=== PATIENT | male | born 1985 | race American Indian/Alaskan Native ===

== ENCOUNTER 2021-05-23 18:52 | Emergency (ER) | payer MEDICAID, OTHER ==
[2021-05-23] MEDS ORDERED: Sodium Chloride 0.9% 1,000 ML IV ONE (19:09)
--- NOTE | 2021-05-23 19:12 | EDM.PDOCBH ---
ED HPI GENERAL MEDICAL PROBLEM - General Stated Complaint: AMBULANCE Time Seen by Provider: 05/23/21 19:12 Source of Information: Reports: Patient, EMS, RN, RN Notes Reviewed History Limitations: Reports: No Limitations - History of Present Illness INITIAL COMMENTS - FREE TEXT/NARRATIVE: Wong is a 36 y/o male who presents to the ED via [facility] for complaints of altered mental status. Per EMS report, upon their arrival to the scene, the patient was unresponsive with a pulse and appropriate respiration rate. Narcan IM was administered via [place] [facility] and sternal rub performed by EMS. Upon arrival to this facility the patient is alert and agitated. He is unable to state event surrounding EMS notification or his arrival to the ED. He denies recent illness, fever, shaking chills, palpitations, shortness of breath, abdominal pain, nausea, vomiting, or dysuria. He states he is unsure if he has used any recreational drugs in the past 24 hours; he notes drinking some alcohol today, but is unable to quantify the amount. Bilateral Chest Pain Score (Numeric/FACES): 10 - Related Data Allergies Allergy/AdvReac Type Severity Reaction Status Date / Time No Known Allergies Allergy Verified 05/23/21 19:27 Home Meds: Home Meds . [No Known Home Meds] 01/04/15 [History] Past Medical History - Past Health History Medical/Surgical History: Denies Medical/Surgical History HEENT History: Reports: None Cardiovascular History: Reports: None Respiratory History: Reports: None Gastrointestinal History: Reports: None, Pancreatitis Genitourinary History: Reports: None Musculoskeletal History: Reports: None Neurological History: Reports: None Psychiatric History: Reports: None Endocrine/Metabolic History: Reports: None Hematologic History: Reports: Other (See Below) Other Hematologic History: TTP Immunologic History: Reports: None Oncologic (Cancer) History: Reports: None Dermatologic History: Reports: None - Past Surgical History Head Surgeries/Procedures: Reports: None HEENT Surgical History: Reports: None Cardiovascular Surgical History: Reports: None Respiratory Surgical History: Reports: None GI Surgical History: Reports: None Male Surgical History: Reports: None Musculoskeletal Surgical History: Reports: None Social & Family History - Family History HEENT: Reports: None Cardiac: Reports: None Respiratory: Reports: None GI: Reports: None : Reports: None OBGYN: Reports: None Musculoskeletal: Reports: None Psychiatric: Reports: None Endocrine/Metabolic: Reports: None Hematologic: Reports: None Immunologic: Reports: None Dermatologic: Reports: None - Living Situation & Occupation Living situation: Reports: Single, with Family Occupation: Unemployed ED ROS GENERAL - Review of Systems Review Of Systems: Comprehensive ROS is negative, except as noted in HPI. ED EXAM, BEHAVIORAL HEALTH - Physical Exam Exam: See Below Exam Limited By: No Limitations General Appearance: No Apparent Distress, Lethargic Eye Exam: Bilateral Eye: EOMI, Normal Inspection, PERRL (3mm) Ears: Normal External Exam, Hearing Grossly Normal Nose: Normal Inspection Throat/Mouth: Normal Inspection, Normal Oropharynx, Normal Voice, No Airway Compromise Head: Atraumatic, Normocephalic Neck: Normal Inspection, Supple, Non-Tender, Full Range of Motion. No: Lymphadenopathy (L), Lymphadenopathy (R) Respiratory/Chest: No Respiratory Distress, Lungs Clear, Normal Breath Sounds, No Accessory Muscle Use, Chest Non-Tender. No: Crackles, Rales, Rhonchi, Wheezing, Stridor Cardiovascular: Normal Peripheral Pulses, Regular Rate, Rhythm, No Gallop, No Murmur, No Rub GI/Abdominal: Normal Bowel Sounds, Soft, Non-Tender, No Abnormal Bruit, No Mass, Pelvis Stable (Male) Exam: Deferred Rectal (Males) Exam: Deferred Back Exam: Normal Inspection, Full Range of Motion Extremities: Normal Inspection, Normal Range of Motion, Non-Tender, No Pedal Edema, Normal Capillary Refill Neurological: CN II-XII Intact, Normal Reflexes, No Motor/Sensory Deficits, Oriented x 3, Opens Eyes to Commands, Withdraws to Pain Psychiatric: Normal Mood, Flat Affect, Poor Eye Contact. No: Homicidal Thoughts, Suicidal Plan, Suicidal Thoughts, Paranoid Thoughts, Threatening Behavior Skin Exam: Warm, Dry, Intact, Normal color, No rash. No: Cyanosis, Jaundice, Mottled, Pallor #1 Interpretation EKG Date: 05/23/21 Time: 18:59 Rhythm: Other (Sinus Tach) Rate (Beats/Min): 109 [place]: Normal P-Wave: Present QRS: Normal ST-T: Normal QT: Normal Comparison: Change From Previous EKG (10/15/14) EKG Interpretation Comments: ST; No evidence of acute myocardial ischemia COURSE, BEHAVIORAL HEALTH COMP - Course Vital Signs: Last Vital Signs Temp 98.2 F 12/05/21 18:58 Pulse 113 H 05/23/21 18:58 Resp 30 H 05/23/21 18:58 BP 120/93 H 05/23/21 18:58 Pulse Ox 87 L 05/23/21 18:58 Orders, Labs, Meds: Laboratory Tests 05/23/21 05/23/21 05/23/21 Range/Units 19:01 19:01 19:20 WBC 20.2 H (5.0-10.0) 10^3/uL RBC 4.81 (4.6-6.2) 10^6/uL Hgb 14.9 (14.0-18.0) g/dL Hct 45.6 (40.0-54.0) % MCV 94.8 D (80-100) fL MCH 31.0 (27.0-34.0) pg MCHC 32.7 L (33.0-35.0) g/dL Plt Count 299 (150-450) 10^3/uL Neut % (Auto) 89.9 H (42.2-75.2) % Lymph % (Auto) 5.1 L (20.5-50.1) % [place] % (Auto) 4.7 (2-8) % Eos % (Auto) 0.2 L (1.0-3.0) % Baso % (Auto) 0.1 (0.0-1.0) % Add Manual Diff Yes Neutrophils % (Manual) 70 (42-75) % Band Neutrophils % 18 % Lymphocytes % (Manual) 9 L (20-50) % Atypical Lymphs % 0 % Monocytes % (Manual) 2 (2-8) % Eosinophils % (Manual) 0 L (1-3) % Basophils % (Manual) 1 Sodium (136-145) mmol/L Potassium (3.5-5.1) mmol/L Chloride (98-107) mmol/L Carbon Dioxide (21-32) mmol/L Anion Gap (7-13) mEq/L BUN (7-18) mg/dL Creatinine (0.70-1.30) mg/dL Est Cr Clr Drug Dosing Estimated GFR (MDRD) BUN/Creatinine Ratio (No establ ref range) Glucose (70-99) mg/dL Calcium (8.5-10.1) mg/dL Magnesium (1.8-2.4) mg/dL Total Bilirubin (0.2-1.0) mg/dL AST (15-37) U/L ALT (16-63) U/L Alkaline Phosphatase (46-116) U/L Troponin I High Sens (<=76) pg/mL C-Reactive Protein (0.0-0.9) mg/dL B-Natriuretic Peptide (0-100) pg/ml Total Protein (6.4-8.2) g/dL Albumin (3.4-5.0) g/dL Globulin Albumin/Globulin Ratio Urine Color Yellow (YELLOW) Urine Appearance Slightly cloudy (CLEAR) Urine pH 6.0 (5.0-9.0) Ur Specific [place] >= 1.030 (1.005-1.030) Urine Protein 30 H (NEGATIVE) Urine Glucose (UA) 250 H (NEGATIVE) Urine Ketones Negative (NEGATIVE) Urine Occult Blood Negative (NEGATIVE) Urine Nitrite Negative (NEGATIVE) Urine Bilirubin Negative (NEGATIVE) Urine Urobilinogen 0.2 (0.2-1.0) mg/dL Ur Leukocyte Esterase Negative (NEGATIVE) Urine RBC Not seen (0-5) /HPF Urine WBC Not seen (0-5/HPF) /HPF Ur Epithelial Cells Rare (NOT SEEN) /HPF Urine Bacteria Rare (0-FEW/HPF) /HPF Urine Opiates Screen Negative (NEGATIVE) Ur Oxycodone Screen Negative (NEGATIVE) Urine Methadone Screen Negative (NEGATIVE) Ur Barbiturates Screen Negative (NEGATIVE) U Tricyclic Antidepress Negative (NEGATIVE) Ur Phencyclidine Scrn Negative (NEGATIVE) Ur Amphetamine Screen Negative (NEGATIVE) U Methamphetamines Scrn Negative (NEGATIVE) Urine MDMA Screen Negative (NEGATIVE) U Benzodiazepines Scrn Negative (NEGATIVE) Urine Cocaine Screen Negative (NEGATIVE) U Marijuana (THC) Screen Positive H (NEGATIVE) Ethyl Alcohol (0) mg/dL 05/23/21 Range/Units 19:20 WBC (5.0-10.0) 10^3/uL RBC (4.6-6.2) 10^6/uL Hgb (14.0-18.0) g/dL Hct (40.0-54.0) % MCV (80-100) fL MCH (27.0-34.0) pg MCHC (33.0-35.0) g/dL Plt Count (150-450) 10^3/uL Neut % (Auto) (42.2-75.2) % Lymph % (Auto) (20.5-50.1) % [place] % (Auto) (2-8) % Eos % (Auto) (1.0-3.0) % Baso % (Auto) (0.0-1.0) % Add Manual Diff Neutrophils % (Manual) (42-75) % Band Neutrophils % % Lymphocytes % (Manual) (20-50) % Atypical Lymphs % % Monocytes % (Manual) (2-8) % Eosinophils % (Manual) (1-3) % Basophils % (Manual) Sodium 140 (136-145) mmol/L Potassium 4.9 (3.5-5.1) mmol/L Chloride 102 (98-107) mmol/L Carbon Dioxide 25 (21-32) mmol/L Anion Gap 17.9 H (7-13) mEq/L BUN 19 H (7-18) mg/dL Creatinine 1.79 H (0.70-1.30) mg/dL Est Cr Clr Drug Dosing TNP Estimated GFR (MDRD) 43 BUN/Creatinine Ratio 10.6 (No establ ref range) Glucose 259 H (70-99) mg/dL Calcium 8.4 L (8.5-10.1) mg/dL Magnesium 2.2 (1.8-2.4) mg/dL Total Bilirubin 0.3 (0.2-1.0) mg/dL AST 67 H (15-37) U/L ALT 122 H (16-63) U/L Alkaline Phosphatase 110 (46-116) U/L Troponin I High Sens 26 (<=76) pg/mL C-Reactive Protein < 0.2 (0.0-0.9) mg/dL B-Natriuretic Peptide 18 (0-100) pg/ml Total Protein 7.9 (6.4-8.2) g/dL Albumin 3.8 (3.4-5.0) g/dL Globulin 4.1 Albumin/Globulin Ratio 0.9 Urine Color (YELLOW) Urine Appearance (CLEAR) Urine pH (5.0-9.0) Ur Specific [place] (1.005-1.030) Urine Protein (NEGATIVE) Urine Glucose (UA) (NEGATIVE) Urine Ketones (NEGATIVE) Urine Occult Blood (NEGATIVE) Urine Nitrite (NEGATIVE) Urine Bilirubin (NEGATIVE) Urine Urobilinogen (0.2-1.0) mg/dL Ur Leukocyte Esterase (NEGATIVE) Urine RBC (0-5) /HPF Urine WBC (0-5/HPF) /HPF Ur Epithelial Cells (NOT SEEN) /HPF Urine Bacteria (0-FEW/HPF) /HPF Urine Opiates Screen (NEGATIVE) Ur Oxycodone Screen (NEGATIVE) Urine Methadone Screen (NEGATIVE) Ur Barbiturates Screen (NEGATIVE) U Tricyclic Antidepress (NEGATIVE) Ur Phencyclidine Scrn (NEGATIVE) Ur Amphetamine Screen (NEGATIVE) U Methamphetamines Scrn (NEGATIVE) Urine MDMA Screen (NEGATIVE) U Benzodiazepines Scrn (NEGATIVE) Urine Cocaine Screen (NEGATIVE) U Marijuana (THC) Screen (NEGATIVE) Ethyl Alcohol < 3 (0) mg/dL Medications Discontinued Medications Generic Name Dose Route Start Last Admin Trade Name Freq PRN Reason Stop Dose Admin Sodium Chloride 1,000 mls @ 999 mls/hr 05/23/21 19:09 05/23/21 19:37 Normal Saline IV 05/23/21 20:09 999 mls/hr .BOLUS ONE Administration Lactated Ringer's 1,000 mls @ 999 mls/hr 05/23/21 20:16 05/23/21 20:28 Ringers, Lactated IV 05/23/21 21:16 999 mls/hr .BOLUS ONE Administration Re-Assessment/Re-Exam: 05/23/21 NS 1L bolus administered while labs pending. Additional LR 1L bolus administered. Machine Filler discussed case with patient's mother who called EMS. She states she went to pick him up from a local hotel and found the patient kneeling next to the bed with his arms and torso slumped on the bed. He was not responding to her, so she called EMS. She does state the patient has a history of recreational drug abuse and cannot r/o current drug use as a cause for his AMS. Findings of examination, lab work, and imaging reviewed with patient. Supportive cares for discussed. Patient instructed to follow up with primary care provider regarding todays visit. Red flag signs and symptoms which would warrant immediate reevaluation reviewed. Patient verbalized understanding and agreement with the plan of care. Departure - Departure Time of Disposition: 21:13 Disposition: Home, Self-Care 01 Condition: Good Clinical Impression: Acute kidney injury, Elevated liver enzymes, Hyperglycemia Altered mental state Qualifiers: Altered mental status type: delirium Qualified Code(s): R41.0 - Disorientation, unspecified - Discharge Information *PRESCRIPTION DRUG MONITORING PROGRAM REVIEWED*: Not Applicable *COPY OF PRESCRIPTION DRUG MONITORING REPORT IN PATIENT OLIVIA: Not Applicable Instructions: Delirium Referrals: PCP,None [Primary Care Provider] - Forms: ED Department Discharge Additional Instructions: 1.) Increase water intake to stay hydrated. 2.) Avoid use of alcohol or recreational drugs. 3.) Establish care with a primary care provider in 3-5 days. 4.) Return to the emergency department with any return of symptoms. Sepsis Event Note (ED) - Focused Exam Vital Signs: Vital Signs Temp Pulse Resp BP Pulse Ox 05/23/21 18:58 98.2 F 113 H 30 H 120/93 H 87 L
[2021-05-23 19:27] VITALS: BP 120/93; PULSE 113
[2021-05-23 19:42] LABS: AMPHETAMINES,URINE NEGATIVE (NEGATIVE); BARBITURATES,URINE NEGATIVE (NEGATIVE); BENZODIAZEPINE,URINE NEGATIVE (NEGATIVE); MDMA (ECSTASY), URINE NEGATIVE (NEGATIVE); METHADONE,URINE NEGATIVE (NEGATIVE); METHAMPHETAMINES,URINE NEGATIVE (NEGATIVE); OPIATES,URINE NEGATIVE (NEGATIVE); OXYCODONE,URINE NEGATIVE (NEGATIVE); PHENCYCLIDINE,URINE NEGATIVE (NEGATIVE); TCA,URINE NEGATIVE (NEGATIVE)
[2021-05-23 19:50] LABS: ANION GAP 17.9 mEq/L (7-13); CHLORIDE,CL 102 mmol/L (98-107); SODIUM,NA 140 mmol/L (136-145)
[2021-05-23] MEDS ORDERED: Lactated Ringers 1,000 ML IV ONE (20:16)
== END 2021-05-23 21:32 | disposition home or self-care (01) ==
LOC: DL.ED 18:52
DX: R41.0 Disorientation, unspecified (principal); N17.9 Acute kidney failure, unspecified; R73.9 Hyperglycemia, unspecified; R94.5 Abnormal results of liver function studies
CPT/HCPCS: 36415; 80053; 80305; 80307; 81001; 83735; 83880; 84484; 85025; 86140; 93005; 99285; J7030; J7120

== ENCOUNTER 2021-08-05 09:08 | Emergency (ER) | payer OTHER ==
[2021-08-05 10:02] LABS: RESPIRATORY SYNCYTIAL VIR NAA NEGATIVE (NEGATIVE)
[2021-08-05 10:03] LABS: CORONAVIRUS COVID-19 NAA POSITIVE (NEGATIVE)
[2021-08-05 11:57] VITALS: BP 162/91; PULSE 69
== END 2021-08-05 12:48 | disposition home or self-care (01) ==
LOC: DL.ED 09:08
DX: U07.1 COVID-19 (principal); Z72.0 Tobacco use
CPT/HCPCS: 0241U; 99283; 99282

== ENCOUNTER 2021-10-13 23:28 | Emergency (ER) | payer SELFPAY ==
[2021-10-14] MEDS ORDERED: Ondansetron 4 MG/2 ML SDV IVPUSH ONE (00:10)
[2021-10-14] MEDS ORDERED: LORazepam 2 MG/ML SDV IVPUSH PRN (00:22)
[2021-10-14] MEDS: Sodium Chloride 0.9% 1,000 ML IV ONE ×2 (00:23→01:01)
[2021-10-14] MEDS ORDERED: Metoclopramide 10 MG/2 ML SDV IVPUSH PRN (00:45)
[2021-10-14] MEDS ORDERED: Famotidine 20 MG Tab PO ONE (00:45)
[2021-10-14] MEDS ORDERED: Famotidine 20 MG/2 ML SDV IVPUSH ONE (00:49)
[2021-10-14 00:51] LABS: ANION GAP 16.7 mEq/L (7-13); CHLORIDE,CL 103 mmol/L (98-107); SODIUM,NA 139 mmol/L (136-145)
[2021-10-14] MEDS ORDERED: Iopamidol 612 MG/ML 100 ML Bottle IVPUSH ONE (00:53)
[2021-10-14] MEDS ORDERED: Sodium Chloride 0.9% 1,000 ML IV ONE (00:56)
[2021-10-14] MEDS ORDERED: fentaNYL 100 MCG/2 ML SDV IVPUSH ONE (00:56)
[2021-10-14] MEDS ORDERED: LORazepam 1 MG Tab PO ONE (02:39)
[2021-10-14] MEDS ORDERED: LORazepam 2 MG/ML SDV IVPUSH ONE ×2 (02:43→06:37)
[2021-10-14 02:44] LABS: AMPHETAMINES,URINE NEGATIVE (NEGATIVE); BARBITURATES,URINE NEGATIVE (NEGATIVE); BENZODIAZEPINE,URINE NEGATIVE (NEGATIVE); MDMA (ECSTASY), URINE NEGATIVE (NEGATIVE); METHADONE,URINE NEGATIVE (NEGATIVE); METHAMPHETAMINES,URINE POSITIVE (NEGATIVE); OPIATES,URINE NEGATIVE (NEGATIVE); OXYCODONE,URINE NEGATIVE (NEGATIVE); PHENCYCLIDINE,URINE NEGATIVE (NEGATIVE); TCA,URINE NEGATIVE (NEGATIVE)
[2021-10-14] MEDS ORDERED: Pantoprazole 80 MG in Sodium Chloride 0.9% 100 ML IV ONE (03:13)
[2021-10-14] MEDS ORDERED: Promethazine 25 MG/ML SDV IM ONE (04:15)
[2021-10-14 05:05] LABS: CORONAVIRUS COVID-19 NAA NEGATIVE (NEGATIVE); RESPIRATORY SYNCYTIAL VIR NAA NEGATIVE (NEGATIVE)
[2021-10-14] MEDS ORDERED: Piperacillin/Tazobactam 3.375 GM in Sodium Chloride 0.9% 100 ML IV ONE (06:18)
[2021-10-14] MEDS ORDERED: Sodium Chloride 0.9% 100 ML ONE (06:27)
[2021-10-14] MEDS ORDERED: LORazepam 2 MG/ML SDV IM ONE (06:30)
[2021-10-14 08:04] VITALS: BP 128/77; PULSE 87
== END 2021-10-14 08:53 ==
LOC: DL.ED 23:28
DX: K26.4 Chronic or unspecified duodenal ulcer with hemorrhage (principal); R11.14 Bilious vomiting; R82.5 Elevated urine levels of drugs, medicaments and biological substances; Z72.0 Tobacco use; Z20.822 Contact with and (suspected) exposure to COVID-19
CPT/HCPCS: 0241U; 36415; 74177; 80053; 80305-QW; 80307; 82150; 83605; 83690; 84484; 85025; 87040; 93005; 96365; 96367; 96372; 96375; 96376; 99284; 99285-25; C9113; J2060; J2405; J2543; J2550; J2765; J3010; J3490; J7030; Q9967

== ENCOUNTER 2023-03-06 16:08 | Emergency (ER) | payer SELFPAY ==
[2023-03-06] MEDS ORDERED: Sodium Chloride 0.9% 10 ML Syringe FLUSH PRN (16:10)
[2023-03-06] MEDS ORDERED: Haloperidol Lactate 5 MG/ML SDV IVPUSH ONE (16:28)
[2023-03-06 16:38] LABS: BASOPHILS PERCENT AUTO 0.4 % (0.0-1.0); HEMATOCRIT 41.6 % (40.0-54.0); HEMOGLOBIN 14.4 g/dL (14.0-18.0); MEAN CORPUSCULAR HEMOGLOBIN 30.7 pg (27.0-34.0); MEAN CORPUSCULAR HGB CONC 34.6 g/dL (33.0-35.0); MEAN CORPUSCULAR VOLUME 88.7 fL (80-100); MONOCYTES PERCENT AUTO 4.5 % (2-8); NEUTROPHILS PERCENT AUTO 80.1 % (42.2-75.2); PLATELET COUNT,PLT 293 10^3/uL (150-450); RED BLOOD CELL COUNT 4.69 10^6/uL (4.6-6.2); WHITE BLOOD CELL COUNT,WBC 9.2 10^3/uL (5.0-10.0)
[2023-03-06] MEDS ORDERED: Pantoprazole 40 MG Vial IVPUSH ONE (16:40)
[2023-03-06] MEDS ORDERED: Sodium Chloride 0.9% 1,000 ML IV ONE (16:40)
[2023-03-06 16:48] LABS: APPEARANCE,URINE CLEAR (CLEAR); BILIRUBIN,URINE SMALL (NEGATIVE); COLOR,URINE YELLOW (YELLOW); GLUCOSE,URINE NEGATIVE (NEGATIVE); KETONES,URINE 40 (NEGATIVE); LEUKOCYTE ESTERASE,URINE TRACE (NEGATIVE); NITRITE,URINE NEGATIVE (NEGATIVE); OCCULT BLOOD,URINE TRACE-INTACT (NEGATIVE); PROTEIN,URINE 30 (NEGATIVE); UROBILINOGEN,URINE 0.2 mg/dL (0.2-1.0)
[2023-03-06 16:50] LABS: METHAMPHETAMINES,URINE NEGATIVE (NEGATIVE)
[2023-03-06 16:51] LABS: AMPHETAMINES,URINE NEGATIVE (NEGATIVE); BARBITURATES,URINE NEGATIVE (NEGATIVE); BENZODIAZEPINE,URINE NEGATIVE (NEGATIVE); MDMA (ECSTASY), URINE NEGATIVE (NEGATIVE); METHADONE,URINE NEGATIVE (NEGATIVE); OPIATES,URINE NEGATIVE (NEGATIVE); OXYCODONE,URINE NEGATIVE (NEGATIVE); PHENCYCLIDINE,URINE NEGATIVE (NEGATIVE); TCA,URINE NEGATIVE (NEGATIVE)
[2023-03-06 16:59] LABS: ALANINE AMINOTRANSFERASE,ALT 168 U/L (16-63); ALBUMIN 3.6 g/dL (3.4-5.0); ALKALINE PHOSPHATASE 119 U/L (46-116); AMYLASE 38 U/L (25-115); ANION GAP 17.4 mEq/L (7-13); ASPARTATE AMNIOTRANSFERASE,AST 107 U/L (15-37); BILIRUBIN TOTAL 0.5 mg/dL (0.2-1.0); BLOOD UREA NITROGEN,BUN 9 mg/dL (7-18); BUN/CREATININE RATIO 9.2 (No establ ref range); C-REACTIVE PROTEIN 0.08 ng/dL (<=0.30); CALCIUM 8.7 mg/dL (8.5-10.1); CARBON DIOXIDE,CO2 22 mmol/L (21-32); CHLORIDE,CL 106 mmol/L (98-107); CREATININE 0.98 mg/dL (0.70-1.30); EST CRCL DRUG DOSING (CG) 93.68 mL/min; ETHANOL BLOOD MEDICAL 46 mg/dL (0); GLUCOSE RANDOM 132 mg/dL (70-99); LIPASE 27 U/L (16-77); MAGNESIUM 1.6 mg/dL (1.8-2.4); POTASSIUM,K 3.4 mmol/L (3.5-5.1); PROTEIN TOTAL,TP 7.3 g/dL (6.4-8.2); SODIUM,NA 142 mmol/L (136-145)
[2023-03-06] MEDS ORDERED: HYDROmorphone 1 MG/ML Syringe IVPUSH ONE (17:03)
[2023-03-06 17:08] LABS: BACTERIA,URINE FEW /HPF (0-FEW/HPF); EPITHELIAL CELLS,URINE FEW /HPF (NOT SEEN); MUCUS,URINE MODERATE /LPF (NOT SEEN); RBC,URINE 0-5 /HPF (0-5)
[2023-03-06 17:16] LABS: ESTIMATED GFR 100 mL/min (>=60)
[2023-03-06 17:17] LABS: LACTIC ACID 2.5 mmol/L (0.4-2.0)
[2023-03-06] MEDS ORDERED: Iopamidol 612 MG/ML 100 ML Bottle IVPUSH ONE (17:20)
[2023-03-06 17:46] VITALS: BP 143/76; PULSE 71
== END 2023-03-06 18:29 | disposition home or self-care (01) ==
LOC: DL.ED 16:08
DX: K29.20 Alcoholic gastritis without bleeding (principal); R11.11 Vomiting without nausea; F12.90 Cannabis use, unspecified, uncomplicated; F17.210 Nicotine dependence, cigarettes, uncomplicated
CPT/HCPCS: 36415; 74177; 80053; 80305; 80307; 81001; 82150; 83605; 83690; 83735; 84145; 85025; 85610; 85730; 86140; 87040; 87086; 93005; 96361; 96374; 96375; 99285; C9113; J1170; J1630; J7030; Q9967; J3490

== ENCOUNTER 2023-07-01 14:46 | Observation (INO) | payer SELFPAY ==
[2023-07-01] MEDS ORDERED: Haloperidol Lactate 5 MG/ML SDV IM ONE (14:55)
[2023-07-01] MEDS ORDERED: Sodium Chloride 0.9% 1,000 ML IV ONE ×3 (14:55→16:25)
[2023-07-01 15:09] LABS: BASOPHILS PERCENT AUTO 0.2 % (0.0-1.0); LYMPHOCYTES PERCENT AUTO 10.8 % (20.5-50.1); MEAN CORPUSCULAR HEMOGLOBIN 30.6 pg (27.0-34.0); MEAN CORPUSCULAR HGB CONC 34.6 g/dL (33.0-35.0); MEAN CORPUSCULAR VOLUME 88.4 fL (80-100); MONOCYTES PERCENT AUTO 8.8 % (2-8); NEUTROPHILS PERCENT AUTO 80.2 % (42.2-75.2); PLATELET COUNT,PLT 359 10^3/uL (150-450); RED BLOOD CELL COUNT 5.88 10^6/uL (4.6-6.2); WHITE BLOOD CELL COUNT,WBC 18.6 10^3/uL (5.0-10.0)
[2023-07-01 15:28] LABS: ALBUMIN 4.7 g/dL (3.4-5.0); ANION GAP 22.3 mEq/L (7-13); CALCIUM 9.7 mg/dL (8.5-10.1); CREATININE 3.21 mg/dL (0.70-1.30); EST CRCL DRUG DOSING (CG) 29.6 mL/min; POTASSIUM,K 4.3 mmol/L (3.5-5.1); PROTEIN TOTAL,TP 9.3 g/dL (6.4-8.2)
[2023-07-01] MEDS ORDERED: Famotidine 20 MG/2 ML SDV IVPUSH ONE (15:52)
[2023-07-01 16:43] LABS: LACTIC ACID 4.9 mmol/L (0.4-2.0)
[2023-07-01] MEDS ORDERED: Naloxone 2 MG/2 ML Syringe IVPUSH PRN (17:25)
[2023-07-01] MEDS ORDERED: HYDROmorphone 0.5 MG/0.5 ML Syringe IVPUSH ONE (17:25)
[2023-07-01] MEDS ORDERED: Pantoprazole 40 MG Vial IVPUSH ONE (17:25)
[2023-07-01] MEDS ORDERED: MVI, Adult with Vitamin K 10 ML, Folic Acid 1 MG, Thiamine 100 MG in Lactated Ringers 1... IV ONE ×4 (19:02)
[2023-07-01] MEDS ORDERED: Sodium Chloride 0.9% 10 ML Syringe FLUSH PRN (19:23)
[2023-07-01] MEDS ORDERED: Acetaminophen 325 MG Tab PO PRN (19:23)
[2023-07-01] MEDS ORDERED: Albuterol/Ipratropium 3.0-0.5 MG/3 ML Neb Soln NEB PRN (19:23)
[2023-07-01] MEDS ORDERED: Haloperidol Lactate 5 MG/ML SDV IM PRN (19:27)
[2023-07-01] MEDS: Capsaicin 0.025% Crm 60 GM Tube TOP SCH (21:37)
[2023-07-01] MEDS: Sodium Chloride 0.9% 10 ML Syringe FLUSH SCH (21:37)
[2023-07-01] MEDS: Pantoprazole 40 MG Vial IVPUSH SCH (21:37)
[2023-07-02] MEDS: HYDROmorphone 0.5 MG/0.5 ML Syringe IVPUSH PRN ×4 (01:34→20:06)
[2023-07-02 06:33] LABS: BASOPHILS PERCENT AUTO 0.4 % (0.0-1.0); HEMATOCRIT 41.3 % (40.0-54.0); HEMOGLOBIN 14.1 g/dL (14.0-18.0); MEAN CORPUSCULAR HEMOGLOBIN 30.8 pg (27.0-34.0); MEAN CORPUSCULAR HGB CONC 34.1 g/dL (33.0-35.0); MEAN CORPUSCULAR VOLUME 90.2 fL (80-100); MONOCYTES PERCENT AUTO 13.5 % (2-8); NEUTROPHILS PERCENT AUTO 68.1 % (42.2-75.2); PLATELET COUNT,PLT 252 10^3/uL (150-450); RED BLOOD CELL COUNT 4.58 10^6/uL (4.6-6.2)
[2023-07-02 06:37] LABS: APPEARANCE,URINE CLEAR (CLEAR); BILIRUBIN,URINE NEGATIVE (NEGATIVE); COLOR,URINE YELLOW (YELLOW); GLUCOSE,URINE NEGATIVE (NEGATIVE); KETONES,URINE NEGATIVE (NEGATIVE); LEUKOCYTE ESTERASE,URINE NEGATIVE (NEGATIVE); NITRITE,URINE NEGATIVE (NEGATIVE); OCCULT BLOOD,URINE TRACE-INTACT (NEGATIVE); PH,URINE 6.5 (5.0-9.0); PROTEIN,URINE NEGATIVE (NEGATIVE); UROBILINOGEN,URINE 0.2 mg/dL (0.2-1.0)
[2023-07-02 06:41] LABS: AMPHETAMINES,URINE NEGATIVE (NEGATIVE); BARBITURATES,URINE NEGATIVE (NEGATIVE); BENZODIAZEPINE,URINE NEGATIVE (NEGATIVE); MDMA (ECSTASY), URINE NEGATIVE (NEGATIVE); METHADONE,URINE NEGATIVE (NEGATIVE); METHAMPHETAMINES,URINE NEGATIVE (NEGATIVE); OPIATES,URINE POSITIVE (NEGATIVE); OXYCODONE,URINE NEGATIVE (NEGATIVE); PHENCYCLIDINE,URINE NEGATIVE (NEGATIVE); TCA,URINE NEGATIVE (NEGATIVE)
[2023-07-02 06:54] LABS: BACTERIA,URINE FEW /HPF (0-FEW/HPF); EPITHELIAL CELLS,URINE RARE /HPF (NOT SEEN); MUCUS,URINE RARE /LPF (NOT SEEN); RBC,URINE 0-5 /HPF (0-5); WBC,URINE 0-5 /HPF (0-5/HPF)
[2023-07-02 07:10] LABS: ANION GAP 14.7 mEq/L (7-13); BUN/CREATININE RATIO 10.6 (No establ ref range); CREATININE 1.32 mg/dL (0.70-1.30); EST CRCL DRUG DOSING (CG) 71.97 mL/min; MAGNESIUM 1.5 mg/dL (1.8-2.4); POTASSIUM,K 3.7 mmol/L (3.5-5.1); PROTEIN TOTAL,TP 6.5 g/dL (6.4-8.2)
[2023-07-02 07:11] LABS: A/G RATIO 0.86
[2023-07-02] MEDS: Capsaicin 0.025% Crm 60 GM Tube TOP SCH ×4 (09:00→19:59)
[2023-07-02] MEDS: Pantoprazole 40 MG Vial IVPUSH SCH ×2 (09:03→20:11)
[2023-07-02] MEDS: Sodium Chloride 0.9% 10 ML Syringe FLUSH SCH ×2 (09:13→20:16)
[2023-07-02] MEDS ORDERED: Magnesium Sulfate/Water 2 GM in Premix Bag 1 BAG IV ONE ×2 (09:28→15:00)
[2023-07-02] MEDS: Sucralfate Suspension 1 GM/10 ML Cup PO SCH ×3 (13:06→20:17)
[2023-07-02] MEDS: Ketorolac 30 MG/ML SDV IVPUSH PRN ×2 (15:45→23:28)
[2023-07-03] MEDS: Capsaicin 0.025% Crm 60 GM Tube TOP SCH ×2 (01:30→08:43)
[2023-07-03] MEDS: HYDROmorphone 0.5 MG/0.5 ML Syringe IVPUSH PRN (03:04)
[2023-07-03 06:23] LABS: BASOPHILS PERCENT AUTO 0.5 % (0.0-1.0); EOSINOPHILS PERCENT AUTO 1.5 % (1.0-3.0); HEMATOCRIT 41.9 % (40.0-54.0); HEMOGLOBIN 14.2 g/dL (14.0-18.0); LYMPHOCYTES PERCENT AUTO 25.1 % (20.5-50.1); MEAN CORPUSCULAR HEMOGLOBIN 30.9 pg (27.0-34.0); MEAN CORPUSCULAR HGB CONC 33.9 g/dL (33.0-35.0); MEAN CORPUSCULAR VOLUME 91.3 fL (80-100); MONOCYTES PERCENT AUTO 11.6 % (2-8); NEUTROPHILS PERCENT AUTO 61.3 % (42.2-75.2); PLATELET COUNT,PLT 241 10^3/uL (150-450); RED BLOOD CELL COUNT 4.59 10^6/uL (4.6-6.2); WHITE BLOOD CELL COUNT,WBC 8.3 10^3/uL (5.0-10.0)
[2023-07-03 06:49] LABS: ALBUMIN 2.9 g/dL (3.4-5.0); ANION GAP 11.8 mEq/L (7-13); BILIRUBIN TOTAL 1.1 mg/dL (0.2-1.0); BUN/CREATININE RATIO 14.6 (No establ ref range); CREATININE 1.03 mg/dL (0.70-1.30); EST CRCL DRUG DOSING (CG) 92.23 mL/min; POTASSIUM,K 3.8 mmol/L (3.5-5.1); PROTEIN TOTAL,TP 6.3 g/dL (6.4-8.2)
[2023-07-03 06:53] LABS: A/G RATIO 0.85
[2023-07-03] MEDS: Sucralfate Suspension 1 GM/10 ML Cup PO SCH (07:46)
[2023-07-03] MEDS: Ketorolac 30 MG/ML SDV IVPUSH PRN (07:51)
[2023-07-03 08:29] VITALS: BP 110/62; PULSE 56
[2023-07-03] MEDS: Pantoprazole 40 MG Vial IVPUSH SCH (08:38)
== END 2023-07-03 10:55 | disposition home or self-care (01) ==
LOC: DL.ED 14:46 → DL.MS 17:49
PROVIDERS: ADMIT Internal Medicine; ATTEND Internal Medicine
DX: F12.288 Cannabis dependence with other cannabis-induced disorder (principal); F17.200 Nicotine dependence, unspecified, uncomplicated; R10.9 Unspecified abdominal pain; R11.2 Nausea with vomiting, unspecified; R73.9 Hyperglycemia, unspecified; K29.00 Acute gastritis without bleeding; Z79.899 Other long term (current) drug therapy; Z79.51 Long term (current) use of inhaled steroids
CPT/HCPCS: 36415; 71045; 74176; 80053; 80305-QW; 80307; 81001; 82271; 83605; 83690; 83735; 85025; 96361; 96365; 96366; 96368; 96372; 96374; 96375; 96376; 99222; 99232; 99238; 99285; 99285-25; A9270-GY; C9113; G0378; J1170; J1630; J1885; J3411; J3475; J3490; J7030; J7120

== ENCOUNTER 2023-07-10 14:48 | Emergency (ER) | payer MEDICAID ==
[2023-07-10 14:09] VITALS: BP 166/154; PULSE 78
[2023-07-10 14:22] LABS: BASOPHILS PERCENT AUTO 0.2 % (0.0-1.0); EOSINOPHILS PERCENT AUTO 0.6 % (1.0-3.0); HEMATOCRIT 45.8 % (40.0-54.0); HEMOGLOBIN 15.5 g/dL (14.0-18.0); LYMPHOCYTES PERCENT AUTO 17.8 % (20.5-50.1); MEAN CORPUSCULAR HEMOGLOBIN 30.3 pg (27.0-34.0); MEAN CORPUSCULAR HGB CONC 33.8 g/dL (33.0-35.0); MEAN CORPUSCULAR VOLUME 89.6 fL (80-100); MONOCYTES PERCENT AUTO 9.1 % (2-8); NEUTROPHILS PERCENT AUTO 72.3 % (42.2-75.2); PLATELET COUNT,PLT 320 10^3/uL (150-450); RED BLOOD CELL COUNT 5.11 10^6/uL (4.6-6.2); WHITE BLOOD CELL COUNT,WBC 9.5 10^3/uL (5.0-10.0)
[2023-07-10 14:39] LABS: INR 0.9 (0.9-1.2); PROTHROMBIN TIME 9.6 SEC (9.0-12.0); PTT,PARTIAL THROMBOPLSTIN TIME 21.9 SEC (22.0-34.0)
[2023-07-10 14:46] LABS: LACTIC ACID 1.4 mmol/L (0.4-2.0)
[~2023-07-10 14:48] MED LIST: Haloperidol Lactate 5 MG/ML SDV IVPUSH ONE; Octreotide 100 MCG in Sodium Chloride 0.9% 99 ML IV SCH; Octreotide 100 MCG/ML SDV IVPUSH ONE; Pantoprazole 40 MG Vial IVPUSH ONE; Pantoprazole 40 MG in Sodium Chloride 0.9% 100 ML IV SCH; Sodium Chloride 0.9% 10 ML Syringe FLUSH PRN
[2023-07-10 14:53] LABS: ACETAMINOPHEN 0 ug/mL (10-30 (Therapeutic)); ALANINE AMINOTRANSFERASE,ALT 63 U/L (16-63); ALBUMIN 3.6 g/dL (3.4-5.0); ALKALINE PHOSPHATASE 106 U/L (46-116); AMYLASE 38 U/L (25-115); ANION GAP 17.3 mEq/L (7-13); ASPARTATE AMNIOTRANSFERASE,AST 36 U/L (15-37); BILIRUBIN TOTAL 0.5 mg/dL (0.2-1.0); BLOOD UREA NITROGEN,BUN 11 mg/dL (7-18); BUN/CREATININE RATIO 9.2 (No establ ref range); C-REACTIVE PROTEIN < 0.50 ng/dL (<=0.50); CALCIUM 8.8 mg/dL (8.5-10.1); CARBON DIOXIDE,CO2 24 mmol/L (21-32); CHLORIDE,CL 106 mmol/L (98-107); EST CRCL DRUG DOSING (CG) 81.83 mL/min; ESTIMATED GFR 78 mL/min (>=60); ETHANOL BLOOD MEDICAL < 3 mg/dL (0); GLUCOSE RANDOM 139 mg/dL (70-99); LIPASE 30 U/L (16-77); MAGNESIUM 1.7 mg/dL (1.8-2.4); POTASSIUM,K 3.3 mmol/L (3.5-5.1); PROTEIN TOTAL,TP 7.2 g/dL (6.4-8.2); SODIUM,NA 144 mmol/L (136-145)
== END 2023-07-10 14:51 | disposition left against medical advice (07) ==
LOC: DL.ED 14:48
DX: R11.10 Vomiting, unspecified (principal); F12.90 Cannabis use, unspecified, uncomplicated; Z79.899 Other long term (current) drug therapy
CPT/HCPCS: 36415; 71045; 80053; 80143; 80179; 80307; 82150; 82271; 83605; 83690; 83735; 84145; 84484; 85025; 85610; 85730; 86140; 86850; 86900; 86901; 93005; 93010; 96374; 96375; 99284; 99285-25; C9113; J1630; J3490

== ENCOUNTER 2023-07-12 11:41 | Emergency (ER) | payer MEDICAID ==
[2023-07-12] MEDS ORDERED: Ondansetron 4 MG Tab.DIS PO ONE (11:50)
[2023-07-12 11:58] VITALS: BP 131/81; PULSE 83
[2023-07-12 12:06] LABS: BASOPHILS PERCENT AUTO 0.3 % (0.0-1.0); HEMATOCRIT 41.3 % (40.0-54.0); HEMOGLOBIN 14.1 g/dL (14.0-18.0); LYMPHOCYTES PERCENT AUTO 24.2 % (20.5-50.1); MEAN CORPUSCULAR HEMOGLOBIN 30.9 pg (27.0-34.0); MEAN CORPUSCULAR HGB CONC 34.1 g/dL (33.0-35.0); MEAN CORPUSCULAR VOLUME 90.6 fL (80-100); MONOCYTES PERCENT AUTO 8.5 % (2-8); PLATELET COUNT,PLT 314 10^3/uL (150-450); RED BLOOD CELL COUNT 4.56 10^6/uL (4.6-6.2); WHITE BLOOD CELL COUNT,WBC 7.1 10^3/uL (5.0-10.0)
[2023-07-12 12:28] LABS: ALANINE AMINOTRANSFERASE,ALT 49 U/L (16-63); ALBUMIN 3.4 g/dL (3.4-5.0); ALKALINE PHOSPHATASE 98 U/L (46-116); AMYLASE 39 U/L (25-115); ANION GAP 15.5 mEq/L (7-13); ASPARTATE AMNIOTRANSFERASE,AST 20 U/L (15-37); BILIRUBIN TOTAL 0.4 mg/dL (0.2-1.0); BLOOD UREA NITROGEN,BUN 10 mg/dL (7-18); BUN/CREATININE RATIO 9.4 (No establ ref range); CALCIUM 8.8 mg/dL (8.5-10.1); CARBON DIOXIDE,CO2 25 mmol/L (21-32); CHLORIDE,CL 104 mmol/L (98-107); CREATININE 1.06 mg/dL (0.70-1.30); EST CRCL DRUG DOSING (CG) 92.64 mL/min; GLUCOSE RANDOM 119 mg/dL (70-99); INR 0.9 (0.9-1.2); LIPASE 31 U/L (16-77); MAGNESIUM 1.7 mg/dL (1.8-2.4); POTASSIUM,K 3.5 mmol/L (3.5-5.1); PROTEIN TOTAL,TP 6.8 g/dL (6.4-8.2); PROTHROMBIN TIME 9.4 SEC (9.0-12.0); PTT,PARTIAL THROMBOPLSTIN TIME 23.3 SEC (22.0-34.0); SODIUM,NA 141 mmol/L (136-145)
[2023-07-12 12:32] LABS: AMPHETAMINES,URINE NEGATIVE (NEGATIVE); BARBITURATES,URINE NEGATIVE (NEGATIVE); BENZODIAZEPINE,URINE NEGATIVE (NEGATIVE); MDMA (ECSTASY), URINE NEGATIVE (NEGATIVE); METHADONE,URINE NEGATIVE (NEGATIVE); METHAMPHETAMINES,URINE NEGATIVE (NEGATIVE); OPIATES,URINE NEGATIVE (NEGATIVE); OXYCODONE,URINE NEGATIVE (NEGATIVE); PHENCYCLIDINE,URINE NEGATIVE (NEGATIVE); TCA,URINE NEGATIVE (NEGATIVE)
[2023-07-12 12:32] LABS: ESTIMATED GFR 91 mL/min (>=60); ETHANOL BLOOD MEDICAL < 3 mg/dL (0)
[2023-07-12 12:33] LABS: LACTIC ACID 1.1 mmol/L (0.4-2.0)
[2023-07-12] MEDS ORDERED: Haloperidol Lactate 5 MG/ML SDV IM ONE (12:41)
[2023-07-12] MEDS ORDERED: Sucralfate Suspension 1 GM/10 ML Cup PO ONE (13:06)
[2023-07-12] MEDS ORDERED: Metoclopramide 10 MG/2 ML SDV IM ONE (13:10)
[2023-07-12] MEDS ORDERED: GI Cocktail Oral Solution 30 ML PO ONE (13:13)
== END 2023-07-12 13:45 | disposition home or self-care (01) ==
LOC: DL.ED 11:41
DX: K29.20 Alcoholic gastritis without bleeding (principal)
CPT/HCPCS: 36415; 80053; 80305-QW; 80307; 82150; 83605; 83690; 83735; 85025; 85610; 85730; 96372; 99283; 99284; A9270-GY; J1630; J2765

== ENCOUNTER 2023-10-27 09:53 | Emergency (ER) | payer MEDICAID ==
[2023-10-27] MEDS: diphenhydrAMINE 50 MG/ML SDV IVPUSH ONE (10:12)
[2023-10-27] MEDS: Haloperidol Lactate 5 MG/ML SDV IVPUSH ONE (10:12)
[2023-10-27] MEDS: Sodium Chloride 0.9% 1,000 ML IV ONE (10:13)
[2023-10-27] MEDS: Sodium Chloride 0.9% 10 ML Syringe FLUSH PRN (10:13)
[2023-10-27 10:15] VITALS: BP 134/97; PULSE 81
[2023-10-27 10:15] LABS: BASOPHILS PERCENT AUTO 0.3 % (0.0-1.0); EOSINOPHILS PERCENT AUTO 0.6 % (1.0-3.0); HEMATOCRIT 48.6 % (40.0-54.0); HEMOGLOBIN 16.8 g/dL (14.0-18.0); LYMPHOCYTES PERCENT AUTO 19.4 % (20.5-50.1); MEAN CORPUSCULAR HEMOGLOBIN 30.6 pg (27.0-34.0); MEAN CORPUSCULAR HGB CONC 34.6 g/dL (33.0-35.0); MEAN CORPUSCULAR VOLUME 88.5 fL (80-100); MONOCYTES PERCENT AUTO 7.8 % (2-8); NEUTROPHILS PERCENT AUTO 71.9 % (42.2-75.2); PLATELET COUNT,PLT 351 10^3/uL (150-450); RED BLOOD CELL COUNT 5.49 10^6/uL (4.6-6.2); WHITE BLOOD CELL COUNT,WBC 6.7 10^3/uL (5.0-10.0)
[2023-10-27] MEDS: LORazepam 2 MG/ML SDV IVPUSH ONE (10:23)
[2023-10-27 10:36] LABS: ALANINE AMINOTRANSFERASE,ALT 110 U/L (16-63); ALBUMIN 4.1 g/dL (3.4-5.0); ALKALINE PHOSPHATASE 150 U/L (46-116); ANION GAP 21.4 mEq/L (7-13); ASPARTATE AMNIOTRANSFERASE,AST 59 U/L (15-37); BILIRUBIN TOTAL 0.4 mg/dL (0.2-1.0); BLOOD UREA NITROGEN,BUN 10 mg/dL (7-18); BUN/CREATININE RATIO 7.5 (No establ ref range); CALCIUM 9.1 mg/dL (8.5-10.1); CARBON DIOXIDE,CO2 22 mmol/L (21-32); CHLORIDE,CL 103 mmol/L (98-107); CREATININE 1.33 mg/dL (0.70-1.30); GLUCOSE RANDOM 145 mg/dL (70-99); LIPASE 25 U/L (16-77); POTASSIUM,K 3.4 mmol/L (3.5-5.1); PROTEIN TOTAL,TP 8.4 g/dL (6.4-8.2); SODIUM,NA 143 mmol/L (136-145)
[2023-10-27 11:01] LABS: APPEARANCE,URINE CLEAR (CLEAR); BILIRUBIN,URINE SMALL (NEGATIVE); COLOR,URINE DARK YELLOW (YELLOW); GLUCOSE,URINE NEGATIVE (NEGATIVE); KETONES,URINE TRACE (NEGATIVE); LEUKOCYTE ESTERASE,URINE NEGATIVE (NEGATIVE); NITRITE,URINE NEGATIVE (NEGATIVE); OCCULT BLOOD,URINE NEGATIVE (NEGATIVE); PROTEIN,URINE 100 (NEGATIVE); UROBILINOGEN,URINE 0.2 mg/dL (0.2-1.0)
[2023-10-27 11:01] LABS: ESTIMATED GFR 69 mL/min (>=60)
[2023-10-27 11:03] LABS: LACTIC ACID 2.7 mmol/L (0.4-2.0)
[2023-10-27 11:06] LABS: AMPHETAMINES,URINE NEGATIVE (NEGATIVE); BARBITURATES,URINE NEGATIVE (NEGATIVE); BENZODIAZEPINE,URINE NEGATIVE (NEGATIVE); MDMA (ECSTASY), URINE NEGATIVE (NEGATIVE); METHADONE,URINE NEGATIVE (NEGATIVE); METHAMPHETAMINES,URINE NEGATIVE (NEGATIVE); OPIATES,URINE NEGATIVE (NEGATIVE); OXYCODONE,URINE NEGATIVE (NEGATIVE); PHENCYCLIDINE,URINE NEGATIVE (NEGATIVE); TCA,URINE NEGATIVE (NEGATIVE)
[2023-10-27 11:51] LABS: MUCUS,URINE MANY /LPF (NOT SEEN)
[2023-10-27 11:52] LABS: AMORPHOUS SEDIMENT,URINE FEW /HPF (NOT SEEN); BACTERIA,URINE FEW /HPF (0-FEW/HPF); EPITHELIAL CELLS,URINE RARE /HPF (NOT SEEN); RBC,URINE NOT SEEN /HPF (0-5)
== END 2023-10-27 13:30 | disposition home or self-care (01) ==
LOC: DL.ED 09:53
DX: R10.13 Epigastric pain (principal); R11.2 Nausea with vomiting, unspecified; F12.188 Cannabis abuse with other cannabis-induced disorder; Z79.899 Other long term (current) drug therapy
CPT/HCPCS: 36415; 80053; 80305; 81001; 83605; 83690; 85025; 96361; 96374; 96375; 99284; J1200; J1630; J2060; J7030; J3490

== ENCOUNTER 2023-11-03 12:37 | Emergency (ER) | payer MEDICAID ==
[2023-11-03 10:50] VITALS: BP 153/92; PULSE 70
[2023-11-03 10:56] LABS: BASOPHILS PERCENT AUTO 0.4 % (0.0-1.0); EOSINOPHILS PERCENT AUTO 3.6 % (1.0-3.0); HEMATOCRIT 45.2 % (40.0-54.0); HEMOGLOBIN 15.4 g/dL (14.0-18.0); LYMPHOCYTES PERCENT AUTO 19.7 % (20.5-50.1); MEAN CORPUSCULAR HEMOGLOBIN 30.7 pg (27.0-34.0); MEAN CORPUSCULAR HGB CONC 34.1 g/dL (33.0-35.0); MEAN CORPUSCULAR VOLUME 90.2 fL (80-100); MONOCYTES PERCENT AUTO 6.9 % (2-8); NEUTROPHILS PERCENT AUTO 69.4 % (42.2-75.2); PLATELET COUNT,PLT 279 10^3/uL (150-450); RED BLOOD CELL COUNT 5.01 10^6/uL (4.6-6.2); WHITE BLOOD CELL COUNT,WBC 10.4 10^3/uL (5.0-10.0)
[2023-11-03] MEDS: diphenhydrAMINE 50 MG/ML SDV IVPUSH ONE (11:02)
[2023-11-03] MEDS: Sodium Chloride 0.9% 1,000 ML IV ONE (11:02)
[2023-11-03] MEDS: Haloperidol Lactate 5 MG/ML SDV IVPUSH ONE ×2 (11:02→11:37)
[2023-11-03] MEDS: Pantoprazole 40 MG Vial IVPUSH ONE (11:02)
[2023-11-03 11:14] LABS: ALBUMIN 3.8 g/dL (3.4-5.0); ANION GAP 15.9 mEq/L (7-13); BILIRUBIN TOTAL 0.6 mg/dL (0.2-1.0); BUN/CREATININE RATIO 10.7 (No establ ref range); CALCIUM 8.8 mg/dL (8.5-10.1); CREATININE 1.21 mg/dL (0.70-1.30); EST CRCL DRUG DOSING (CG) 83.79 mL/min; POTASSIUM,K 3.9 mmol/L (3.5-5.1); PROTEIN TOTAL,TP 7.7 g/dL (6.4-8.2)
[2023-11-03] MEDS: GI Cocktail Oral Solution 30 ML PO ONE (11:22)
[2023-11-03] MEDS: Haloperidol Lactate 5 MG/ML SDV ONE (11:37)
[2023-11-03] MEDS: Iopamidol 612 MG/ML 100 ML Bottle IVPUSH ONE (11:46)
== END 2023-11-03 12:45 | disposition home or self-care (01) ==
LOC: DL.ED 12:37
DX: R11.2 Nausea with vomiting, unspecified (principal); F12.10 Cannabis abuse, uncomplicated; Z79.899 Other long term (current) drug therapy
CPT/HCPCS: 36415; 74177; 80053; 82150; 83690; 85025; 96361; 96374; 96375; 96376; 99284; A9270; C9113; J1200; J1630; J7030; Q9967

== ENCOUNTER 2024-03-13 10:24 | Emergency (ER) | payer MEDICAID ==
[2024-03-13] MEDS ORDERED: Sodium Chloride 0.9% 10 ML Syringe FLUSH PRN (10:29)
[2024-03-13 10:45] VITALS: BP 123/73; PULSE 60
[2024-03-13 10:46] LABS: BASOPHILS PERCENT AUTO 0.1 % (0.0-1.0); EOSINOPHILS PERCENT AUTO 4.7 % (1.0-3.0); HEMATOCRIT 41.8 % (40.0-54.0); HEMOGLOBIN 14.2 g/dL (14.0-18.0); LYMPHOCYTES PERCENT AUTO 9.8 % (20.5-50.1); MEAN CORPUSCULAR HEMOGLOBIN 31.1 pg (27.0-34.0); MEAN CORPUSCULAR VOLUME 91.5 fL (80-100); MONOCYTES PERCENT AUTO 7.7 % (2-8); NEUTROPHILS PERCENT AUTO 77.7 % (42.2-75.2); PLATELET COUNT,PLT 294 10^3/uL (150-450); RED BLOOD CELL COUNT 4.57 10^6/uL (4.6-6.2); WHITE BLOOD CELL COUNT,WBC 9.7 10^3/uL (5.0-10.0)
[2024-03-13] MEDS: Ketorolac 30 MG/ML SDV IVPUSH ONE (10:55)
[2024-03-13] MEDS: GI Cocktail Oral Solution 30 ML PO ONE (10:56)
[2024-03-13 11:05] LABS: ALANINE AMINOTRANSFERASE,ALT 72 U/L (16-63); ALBUMIN 3.6 g/dL (3.4-5.0); ALKALINE PHOSPHATASE 138 U/L (46-116); ANION GAP 10.5 mEq/L (7-13); ASPARTATE AMNIOTRANSFERASE,AST 43 U/L (15-37); BILIRUBIN TOTAL 0.5 mg/dL (0.2-1.0); BLOOD UREA NITROGEN,BUN 16 mg/dL (7-18); BUN/CREATININE RATIO 15.8 (No establ ref range); CALCIUM 9.1 mg/dL (8.5-10.1); CARBON DIOXIDE,CO2 26 mmol/L (21-32); CHLORIDE,CL 106 mmol/L (98-107); CREATININE 1.01 mg/dL (0.70-1.30); EST CRCL DRUG DOSING (CG) 96.25 mL/min; GLUCOSE RANDOM 142 mg/dL (70-99); MAGNESIUM 1.9 mg/dL (1.8-2.4); POTASSIUM,K 3.5 mmol/L (3.5-5.1); PROTEIN TOTAL,TP 7.1 g/dL (6.4-8.2); SODIUM,NA 139 mmol/L (136-145)
[2024-03-13 11:06] LABS: C-REACTIVE PROTEIN < 0.50 ng/dL (<=0.50); ESTIMATED GFR 96 mL/min (>=60)
[2024-03-13 11:14] LABS: AMYLASE 31 U/L (25-115); LIPASE 23 U/L (16-77)
[2024-03-13 11:15] LABS: APPEARANCE,URINE CLEAR (CLEAR); BILIRUBIN,URINE SMALL (NEGATIVE); COLOR,URINE DARK YELLOW (YELLOW); GLUCOSE,URINE NEGATIVE (NEGATIVE); KETONES,URINE TRACE (NEGATIVE); LEUKOCYTE ESTERASE,URINE NEGATIVE (NEGATIVE); NITRITE,URINE NEGATIVE (NEGATIVE); OCCULT BLOOD,URINE NEGATIVE (NEGATIVE); PH,URINE 6.5 (5.0-9.0); PROTEIN,URINE 30 (NEGATIVE); UROBILINOGEN,URINE 0.2 mg/dL (0.2-1.0)
[2024-03-13 11:22] LABS: AMPHETAMINES,URINE NEGATIVE (NEGATIVE); BARBITURATES,URINE NEGATIVE (NEGATIVE); BENZODIAZEPINE,URINE NEGATIVE (NEGATIVE); MDMA (ECSTASY), URINE POSITIVE (NEGATIVE); METHADONE,URINE NEGATIVE (NEGATIVE); METHAMPHETAMINES,URINE NEGATIVE (NEGATIVE); OPIATES,URINE NEGATIVE (NEGATIVE); OXYCODONE,URINE NEGATIVE (NEGATIVE); PHENCYCLIDINE,URINE NEGATIVE (NEGATIVE); TCA,URINE NEGATIVE (NEGATIVE)
[2024-03-13 11:28] LABS: AMORPHOUS SEDIMENT,URINE FEW /HPF (NOT SEEN); BACTERIA,URINE FEW /HPF (0-FEW/HPF); EPITHELIAL CELLS,URINE RARE /HPF (NOT SEEN); MUCUS,URINE MODERATE /LPF (NOT SEEN); RBC,URINE 0-5 /HPF (0-5); WBC,URINE 0-5 /HPF (0-5/HPF)
== END 2024-03-13 11:25 | disposition home or self-care (01) ==
LOC: DL.ED 10:24
DX: R10.13 Epigastric pain (principal)
CPT/HCPCS: 36415; 80053; 80305-QW; 81001; 82150; 83605; 83690; 83735; 85025; 86140; 96374; 99284-25; A9270-GY; J1885

== ENCOUNTER 2024-04-17 16:57 | Emergency (ER) | payer MEDICAID ==
[2024-04-17 17:12] VITALS: BP 121/76; PULSE 67
[2024-04-17] MEDS: Dexamethasone 4 MG/ML SDV IM ONE (17:23)
== END 2024-04-17 17:28 | disposition home or self-care (01) ==
LOC: DL.ED 16:57
DX: M94.0 Chondrocostal junction syndrome [Tietze] (principal); F17.210 Nicotine dependence, cigarettes, uncomplicated; Z79.899 Other long term (current) drug therapy
CPT/HCPCS: 93005; 96372; 99284; J1100

== ENCOUNTER 2024-07-23 11:11 | Observation (INO) | payer BC, MEDICAID ==
[2024-07-23] MEDS: Iopamidol 612 MG/ML 100 ML Bottle IVPUSH ONE (11:28)
[2024-07-23] MEDS: Sodium Chloride 0.9% 1,000 ML IV ONE ×2 (11:40→12:43)
[2024-07-23] MEDS: Famotidine 20 MG/2 ML SDV IVPUSH ONE (11:43)
[2024-07-23 11:48] LABS: APPEARANCE,URINE CLEAR (CLEAR); BILIRUBIN,URINE NEGATIVE (NEGATIVE); COLOR,URINE YELLOW (YELLOW); GLUCOSE,URINE NEGATIVE (NEGATIVE); KETONES,URINE NEGATIVE (NEGATIVE); LEUKOCYTE ESTERASE,URINE NEGATIVE (NEGATIVE); NITRITE,URINE NEGATIVE (NEGATIVE); OCCULT BLOOD,URINE TRACE-INTACT (NEGATIVE); PROTEIN,URINE NEGATIVE (NEGATIVE); UROBILINOGEN,URINE 0.2 mg/dL (0.2-1.0)
[2024-07-23 11:52] LABS: AMPHETAMINES,URINE NEGATIVE (NEGATIVE); BARBITURATES,URINE NEGATIVE (NEGATIVE); BENZODIAZEPINE,URINE NEGATIVE (NEGATIVE); MDMA (ECSTASY), URINE NEGATIVE (NEGATIVE); METHADONE,URINE NEGATIVE (NEGATIVE); METHAMPHETAMINES,URINE NEGATIVE (NEGATIVE); OPIATES,URINE NEGATIVE (NEGATIVE); OXYCODONE,URINE NEGATIVE (NEGATIVE); PHENCYCLIDINE,URINE NEGATIVE (NEGATIVE); TCA,URINE NEGATIVE (NEGATIVE)
[2024-07-23 11:53] LABS: HEMATOCRIT 42.1 % (40.0-54.0); HEMOGLOBIN 14.2 g/dL (14.0-18.0); MEAN CORPUSCULAR HEMOGLOBIN 30.5 pg (27.0-34.0); MEAN CORPUSCULAR HGB CONC 33.7 g/dL (33.0-35.0); MEAN CORPUSCULAR VOLUME 90.3 fL (80-100); PLATELET COUNT,PLT 261 10^3/uL (150-450); RED BLOOD CELL COUNT 4.66 10^6/uL (4.6-6.2); WHITE BLOOD CELL COUNT,WBC 6.9 10^3/uL (5.0-10.0)
[2024-07-23 11:58] LABS: BASOPHILS PERCENT AUTO 0.7 % (0.0-1.0); EOSINOPHILS PERCENT AUTO 11.9 % (1.0-3.0); LYMPHOCYTES PERCENT AUTO 36.1 % (20.5-50.1); MONOCYTES PERCENT AUTO 7.9 % (2-8); NEUTROPHILS PERCENT AUTO 43.4 % (42.2-75.2)
[2024-07-23 12:02] LABS: BACTERIA,URINE RARE /HPF (0-FEW/HPF); EPITHELIAL CELLS,URINE FEW /HPF (NOT SEEN); MUCUS,URINE FEW /LPF (NOT SEEN); WBC,URINE 0-5 /HPF (0-5/HPF)
[2024-07-23 12:09] LABS: ALBUMIN 3.4 g/dL (3.4-5.0); ANION GAP 16.3 mEq/L (7-13); BILIRUBIN TOTAL 0.2 mg/dL (0.2-1.0); BUN/CREATININE RATIO 14.3 (No establ ref range); CALCIUM 8.3 mg/dL (8.5-10.1); CREATININE 0.91 mg/dL (0.70-1.30); EST CRCL DRUG DOSING (CG) 106.83 mL/min; MAGNESIUM 1.7 mg/dL (1.8-2.4); POTASSIUM,K 3.3 mmol/L (3.5-5.1); PROTEIN TOTAL,TP 6.8 g/dL (6.4-8.2)
[2024-07-23 12:15] LABS: EOSINOPHILS PERCENT MAN 9 % (1-3); LYMPHOCYTES PERCENT MAN 43 % (20-50); MONOCYTES PERCENT MAN 5 % (2-8); SEG NEUTROPHILS PERCENT MAN 43 % (42-75)
[2024-07-23] MEDS: Magnesium Sulfate/Water Premix 2 GM in Premix Bag 1 BAG IV ONE (12:26)
[2024-07-23] MEDS: Potassium Chloride 20 MEQ in Premix Bag 1 BAG IV ONE (12:26)
[2024-07-23] MEDS: Ondansetron 4 MG/2 ML SDV IVPUSH ONE (12:46)
[2024-07-23] MEDS: Pantoprazole 40 MG Vial IVPUSH ONE (12:46)
[2024-07-23] MEDS: GI Cocktail Oral Solution 30 ML PO ONE (13:04)
[2024-07-23] MEDS ORDERED: Docusate Sodium 100 MG Cap PO PRN (14:18)
[2024-07-23] MEDS ORDERED: Bisacodyl 5 MG Tab PO PRN (14:18)
[2024-07-23] MEDS ORDERED: Sennosides/Docusate Sodium 50-8.6 MG Tab PO PRN (14:18)
[2024-07-23] MEDS ORDERED: Acetaminophen 325 MG Tab PO PRN (14:18)
[2024-07-23] MEDS ORDERED: GI Cocktail Oral Solution 30 ML PO PRN (14:24)
[2024-07-23] MEDS: Sodium Chloride 0.9% 1,000 ML IV SCH (15:32)
[2024-07-23] MEDS: Ondansetron 4 MG/2 ML SDV IVPUSH PRN (18:26)
[2024-07-23] MEDS: Pantoprazole 40 MG Vial IVPUSH SCH (20:44)
[2024-07-23] MEDS: Metoclopramide 10 MG/2 ML SDV IV PRN (21:02)
[2024-07-23] MEDS ORDERED: Haloperidol Lactate 5 MG/ML SDV IVPUSH PRN (21:13)
[2024-07-23] MEDS: Buprenorphine/Naloxone 8-2 MG Tab.SL SL ONE (22:20)
[2024-07-23] MEDS: Ketorolac 30 MG/ML SDV IVPUSH PRN (22:21)
[2024-07-23] MEDS: BUPRENORPHINE SL ONE (22:32)
[2024-07-23] MEDS: NALOXONE SL ONE (22:32)
[2024-07-24 06:17] LABS: BASOPHILS PERCENT AUTO 0.5 % (0.0-1.0); EOSINOPHILS PERCENT AUTO 0.4 % (1.0-3.0); HEMATOCRIT 35.8 % (40.0-54.0); HEMOGLOBIN 11.9 g/dL (14.0-18.0); LYMPHOCYTES PERCENT AUTO 23.4 % (20.5-50.1); MEAN CORPUSCULAR HEMOGLOBIN 30.7 pg (27.0-34.0); MEAN CORPUSCULAR HGB CONC 33.2 g/dL (33.0-35.0); MEAN CORPUSCULAR VOLUME 92.5 fL (80-100); MONOCYTES PERCENT AUTO 9.2 % (2-8); NEUTROPHILS PERCENT AUTO 66.5 % (42.2-75.2); PLATELET COUNT,PLT 224 10^3/uL (150-450); RED BLOOD CELL COUNT 3.87 10^6/uL (4.6-6.2); WHITE BLOOD CELL COUNT,WBC 8.5 10^3/uL (5.0-10.0)
[2024-07-24 06:39] LABS: A/G RATIO 0.97; ALBUMIN 2.8 g/dL (3.4-5.0); BILIRUBIN TOTAL 0.5 mg/dL (0.2-1.0); BUN/CREATININE RATIO 16.7 (No establ ref range); CALCIUM 7.9 mg/dL (8.5-10.1); CREATININE 0.84 mg/dL (0.70-1.30); EST CRCL DRUG DOSING (CG) 115.73 mL/min; PROTEIN TOTAL,TP 5.7 g/dL (6.4-8.2)
[2024-07-24 08:32] VITALS: BP 110/67; PULSE 94
[2024-07-24] MEDS: Buprenorphine/Naloxone 8-2 MG Tab.SL SL SCH (09:26)
== END 2024-07-24 10:00 | disposition home or self-care (01) ==
LOC: DL.ED 11:11 → DL.MS 13:11
PROVIDERS: ADMIT Internal Medicine; ATTEND Internal Medicine
DX: K52.9 Noninfective gastroenteritis and colitis, unspecified (principal); E86.0 Dehydration; E87.6 Hypokalemia; E83.42 Hypomagnesemia; F17.200 Nicotine dependence, unspecified, uncomplicated; Z79.899 Other long term (current) drug therapy
CPT/HCPCS: 36415; 74177; 80053; 80305; 80307; 81001; 82947; 83690; 83735; 84484; 85025; 93005; 96361; 96365; 96368; 96375; 99222; 99238; 99285; A9270; J1885; J2405; J2470; J2765; J3475; J3480; J7030; Q9967; 93010; 99284

== ENCOUNTER 2024-07-25 10:39 | Observation (INO) | payer MEDICAID ==
[2024-07-25] MEDS: Iopamidol 612 MG/ML 100 ML Bottle IVPUSH ONE (10:47)
[2024-07-25 11:12] LABS: BASOPHILS PERCENT AUTO 0.3 % (0.0-1.0); EOSINOPHILS PERCENT AUTO 3.4 % (1.0-3.0); HEMATOCRIT 40.7 % (40.0-54.0); HEMOGLOBIN 13.7 g/dL (14.0-18.0); LYMPHOCYTES PERCENT AUTO 20.4 % (20.5-50.1); MEAN CORPUSCULAR HEMOGLOBIN 30.8 pg (27.0-34.0); MEAN CORPUSCULAR HGB CONC 33.7 g/dL (33.0-35.0); MEAN CORPUSCULAR VOLUME 91.5 fL (80-100); MONOCYTES PERCENT AUTO 6.9 % (2-8); PLATELET COUNT,PLT 249 10^3/uL (150-450); RED BLOOD CELL COUNT 4.45 10^6/uL (4.6-6.2); WHITE BLOOD CELL COUNT,WBC 10.5 10^3/uL (5.0-10.0)
[2024-07-25 11:15] LABS: APPEARANCE,URINE CLEAR (CLEAR); BILIRUBIN,URINE NEGATIVE (NEGATIVE); COLOR,URINE YELLOW (YELLOW); GLUCOSE,URINE NEGATIVE (NEGATIVE); KETONES,URINE NEGATIVE (NEGATIVE); LEUKOCYTE ESTERASE,URINE NEGATIVE (NEGATIVE); NITRITE,URINE NEGATIVE (NEGATIVE); OCCULT BLOOD,URINE NEGATIVE (NEGATIVE); PROTEIN,URINE NEGATIVE (NEGATIVE); UROBILINOGEN,URINE 0.2 mg/dL (0.2-1.0)
[2024-07-25 11:20] LABS: AMPHETAMINES,URINE NEGATIVE (NEGATIVE); BARBITURATES,URINE NEGATIVE (NEGATIVE); BENZODIAZEPINE,URINE NEGATIVE (NEGATIVE); MDMA (ECSTASY), URINE NEGATIVE (NEGATIVE); METHADONE,URINE NEGATIVE (NEGATIVE); METHAMPHETAMINES,URINE NEGATIVE (NEGATIVE); OPIATES,URINE NEGATIVE (NEGATIVE); OXYCODONE,URINE NEGATIVE (NEGATIVE); PHENCYCLIDINE,URINE NEGATIVE (NEGATIVE); TCA,URINE NEGATIVE (NEGATIVE)
[2024-07-25] MEDS: Pantoprazole 40 MG Vial IVPUSH ONE (11:21)
[2024-07-25] MEDS: Lactated Ringers 1,000 ML IV ONE (11:21)
[2024-07-25] MEDS: Promethazine 25 MG/ML SDV IM ONE (11:21)
[2024-07-25 11:29] LABS: INR 0.9 (0.9-1.2); PROTHROMBIN TIME 9.3 SEC (9.0-12.0)
[2024-07-25] MEDS: Haloperidol Lactate 5 MG/ML SDV IVPUSH ONE (11:32)
[2024-07-25] MEDS: Metoclopramide 10 MG/2 ML SDV IVPUSH ONE ×2 (11:32→13:11)
[2024-07-25 11:38] LABS: ALANINE AMINOTRANSFERASE,ALT 23 U/L (16-63); ALBUMIN 3.4 g/dL (3.4-5.0); ALKALINE PHOSPHATASE 93 U/L (46-116); ANION GAP 13.5 mEq/L (7-13); ASPARTATE AMNIOTRANSFERASE,AST 17 U/L (15-37); BILIRUBIN TOTAL 0.5 mg/dL (0.2-1.0); BLOOD UREA NITROGEN,BUN 15 mg/dL (7-18); BUN/CREATININE RATIO 13.3 (No establ ref range); CALCIUM 8.5 mg/dL (8.5-10.1); CARBON DIOXIDE,CO2 25 mmol/L (21-32); CHLORIDE,CL 105 mmol/L (98-107); CREATININE 1.13 mg/dL (0.70-1.30); EST CRCL DRUG DOSING (CG) 83.23 mL/min; GLUCOSE RANDOM 126 mg/dL (70-99); LIPASE 25 U/L (16-77); MAGNESIUM 1.8 mg/dL (1.8-2.4); POTASSIUM,K 3.5 mmol/L (3.5-5.1); PROTEIN TOTAL,TP 6.7 g/dL (6.4-8.2); SODIUM,NA 140 mmol/L (136-145)
[2024-07-25 11:40] LABS: ESTIMATED GFR 84 mL/min (>=60); ETHANOL BLOOD MEDICAL < 3 mg/dL (0)
[2024-07-25] MEDS: GI Cocktail Oral Solution 30 ML PO ONE (12:12)
[2024-07-25] MEDS: Famotidine 20 MG/2 ML SDV IVPUSH ONE (12:14)
[2024-07-25] MEDS ORDERED: Metoclopramide 10 MG/2 ML SDV IV PRN (12:44)
[2024-07-25] MEDS ORDERED: Ibuprofen 400 MG Tab PO PRN (12:44)
[2024-07-25] MEDS ORDERED: Polyethylene Glycol 3350 Powder 17 GM Packet PO PRN (12:44)
[2024-07-25] MEDS ORDERED: Promethazine 25 MG Supp RECTAL PRN (12:44)
[2024-07-25] MEDS ORDERED: Bisacodyl 5 MG Tab PO PRN (12:44)
[2024-07-25] MEDS ORDERED: Sennosides/Docusate Sodium 50-8.6 MG Tab PO PRN (12:44)
[2024-07-25] MEDS ORDERED: Ondansetron 4 MG/2 ML SDV IVPUSH PRN (12:44)
[2024-07-25] MEDS ORDERED: Docusate Sodium 100 MG Cap PO PRN (12:44)
[2024-07-25] MEDS ORDERED: Acetaminophen 325 MG Tab PO PRN (12:44)
[2024-07-25] MEDS ORDERED: Haloperidol Lactate 5 MG/ML SDV IVPUSH PRN (12:49)
[2024-07-25] MEDS: Lactated Ringers 1,000 ML IV SCH (13:10)
[2024-07-25] MEDS ORDERED: GI Cocktail Oral Solution 30 ML PO PRN (13:18)
[2024-07-25] MEDS: Ketorolac 30 MG/ML SDV IVPUSH PRN (14:04)
[2024-07-25] MEDS: Pantoprazole 40 MG Vial IVPUSH SCH (20:26)
[2024-07-26 02:14] VITALS: PULSE 59
[2024-07-26 05:54] LABS: BASOPHILS PERCENT AUTO 0.5 % (0.0-1.0); EOSINOPHILS PERCENT AUTO 0.7 % (1.0-3.0); HEMATOCRIT 36.1 % (40.0-54.0); HEMOGLOBIN 12.1 g/dL (14.0-18.0); LYMPHOCYTES PERCENT AUTO 32.3 % (20.5-50.1); MEAN CORPUSCULAR HEMOGLOBIN 30.9 pg (27.0-34.0); MEAN CORPUSCULAR HGB CONC 33.5 g/dL (33.0-35.0); MEAN CORPUSCULAR VOLUME 92.3 fL (80-100); MONOCYTES PERCENT AUTO 10.9 % (2-8); NEUTROPHILS PERCENT AUTO 55.6 % (42.2-75.2); PLATELET COUNT,PLT 210 10^3/uL (150-450); RED BLOOD CELL COUNT 3.91 10^6/uL (4.6-6.2); WHITE BLOOD CELL COUNT,WBC 7.4 10^3/uL (5.0-10.0)
[2024-07-26 06:32] LABS: ALBUMIN 2.7 g/dL (3.4-5.0); ANION GAP 10.6 mEq/L (7-13); BILIRUBIN TOTAL 0.6 mg/dL (0.2-1.0); BUN/CREATININE RATIO 12.4 (No establ ref range); CALCIUM 7.9 mg/dL (8.5-10.1); CREATININE 0.89 mg/dL (0.70-1.30); EST CRCL DRUG DOSING (CG) 105.67 mL/min; POTASSIUM,K 3.6 mmol/L (3.5-5.1); PROTEIN TOTAL,TP 5.5 g/dL (6.4-8.2)
[2024-07-26 06:37] LABS: A/G RATIO 0.96
[2024-07-26 07:22] VITALS: BP 122/73
[2024-07-26] MEDS ORDERED: Buprenorphine/Naloxone 8-2 MG Tab.SL SL SCH (09:00)
[2024-07-26] MEDS ORDERED: Enoxaparin 40 MG/0.4 ML Syringe SUBCUT SCH (09:00)
[2024-07-26] MEDS: Potassium Chloride 10 MEQ Tab.ER PO ONE (09:03)
== END 2024-07-26 09:12 | disposition left against medical advice (07) ==
LOC: DL.ED 10:39 → DL.MS 12:14
PROVIDERS: ADMIT Internal Medicine; ATTEND Internal Medicine
DX: K29.00 Acute gastritis without bleeding (principal); F17.210 Nicotine dependence, cigarettes, uncomplicated
CPT/HCPCS: 36415; 74177; 80053; 80305-QW; 80307; 81003; 83690; 83735; 84484; 85025; 85610; 93005; 93010; 96361; 96372; 96374; 96375; 99222; 99239; 99284; 99285-25; A9270-GY; J1630; J1885; J2470; J2550; J2765; J7120; Q9967

== ENCOUNTER 2024-09-12 22:27 | Emergency (ER) | payer BC, MEDICAID ==
[2024-09-13 00:34] VITALS: BP 145/82; PULSE 86
== END 2024-09-13 00:34 | disposition home or self-care (01) ==
LOC: DL.ED 22:27
DX: J11.1 Influenza due to unidentified influenza virus with other respiratory manifestations (principal); Z79.899 Other long term (current) drug therapy
CPT/HCPCS: 87428-QW; 99282; 99283

== ENCOUNTER 2024-10-09 17:36 | Emergency (ER) | payer MEDICAID, OTHER ==
[2024-10-09] MEDS: Haloperidol Lactate 5 MG/ML SDV IVPUSH ONE (17:39)
[2024-10-09] MEDS: diphenhydrAMINE 50 MG/ML SDV IVPUSH ONE (17:39)
[2024-10-09] MEDS: Ketorolac 30 MG/ML SDV IVPUSH ONE (17:40)
[2024-10-09] MEDS: Sodium Chloride 0.9% 1,000 ML IV ONE (17:43)
[2024-10-09 17:52] LABS: BASOPHILS PERCENT AUTO 0.2 % (0.0-1.0); EOSINOPHILS PERCENT AUTO 0.1 % (1.0-3.0); HEMOGLOBIN 16.6 g/dL (14.0-18.0); LYMPHOCYTES PERCENT AUTO 11.9 % (20.5-50.1); MEAN CORPUSCULAR HEMOGLOBIN 31.4 pg (27.0-34.0); MEAN CORPUSCULAR HGB CONC 35.3 g/dL (33.0-35.0); MONOCYTES PERCENT AUTO 6.2 % (2-8); NEUTROPHILS PERCENT AUTO 81.6 % (42.2-75.2); PLATELET COUNT,PLT 264 10^3/uL (150-450); RED BLOOD CELL COUNT 5.28 10^6/uL (4.6-6.2); WHITE BLOOD CELL COUNT,WBC 11.8 10^3/uL (5.0-10.0)
[2024-10-09 17:53] VITALS: BP 135/100; PULSE 68
[2024-10-09 18:10] LABS: A/G RATIO 1.1; ALBUMIN 4.3 g/dL (3.4-5.0); ANION GAP 16.9 mEq/L (7-13); BILIRUBIN TOTAL 0.6 mg/dL (0.2-1.0); BUN/CREATININE RATIO 7.7 (No establ ref range); CALCIUM 9.7 mg/dL (8.5-10.1); CREATININE 1.3 mg/dL (0.70-1.30); EST CRCL DRUG DOSING (CG) 72.35 mL/min; MAGNESIUM 1.7 mg/dL (1.8-2.4); POTASSIUM,K 3.9 mmol/L (3.5-5.1); PROTEIN TOTAL,TP 8.3 g/dL (6.4-8.2)
[2024-10-09] MEDS: GI Cocktail Oral Solution 30 ML PO ONE (18:30)
== END 2024-10-09 18:40 | disposition home or self-care (01) ==
LOC: DL.ED 17:36
DX: R11.2 Nausea with vomiting, unspecified (principal); Z79.899 Other long term (current) drug therapy
CPT/HCPCS: 36415; 80053; 83690; 83735; 85025; 96361; 96374; 96375; 99284; A9270; J1200; J1630; J1885; J7030

== ENCOUNTER 2024-11-28 07:05 | Emergency (ER) | payer MEDICAID, OTHER ==
[2024-11-28 07:22] VITALS: BP 149/90; PULSE 80
[2024-11-28 07:35] LABS: BASOPHILS PERCENT AUTO 0.5 % (0.0-1.0); EOSINOPHILS PERCENT AUTO 6.9 % (1.0-3.0); HEMATOCRIT 45.8 % (40.0-54.0); HEMOGLOBIN 15.5 g/dL (14.0-18.0); LYMPHOCYTES PERCENT AUTO 23.6 % (20.5-50.1); MEAN CORPUSCULAR HGB CONC 33.8 g/dL (33.0-35.0); MEAN CORPUSCULAR VOLUME 91.6 fL (80-100); MONOCYTES PERCENT AUTO 7.7 % (2-8); NEUTROPHILS PERCENT AUTO 61.3 % (42.2-75.2); PLATELET COUNT,PLT 249 10^3/uL (150-450); WHITE BLOOD CELL COUNT,WBC 9.6 10^3/uL (5.0-10.0)
[2024-11-28] MEDS: GI Cocktail Oral Solution 30 ML PO ONE (07:35)
[2024-11-28] MEDS: Ketorolac 30 MG/ML SDV IVPUSH ONE (07:35)
[2024-11-28] MEDS: Pantoprazole 40 MG Tab.CR PO ONE (07:37)
[2024-11-28 07:54] LABS: A/G RATIO 1.1; ALANINE AMINOTRANSFERASE,ALT 19 U/L (16-63); ALBUMIN 3.8 g/dL (3.4-5.0); ALKALINE PHOSPHATASE 116 U/L (46-116); AMYLASE 43 U/L (25-115); ASPARTATE AMNIOTRANSFERASE,AST 15 U/L (15-37); BILIRUBIN DIRECT 0.1 mg/dL (0.0-0.2); BILIRUBIN INDIRECT 0.2; BILIRUBIN TOTAL 0.3 mg/dL (0.2-1.0); BLOOD UREA NITROGEN,BUN 12 mg/dL (7-18); CALCIUM 9.4 mg/dL (8.5-10.1); CARBON DIOXIDE,CO2 27 mmol/L (21-32); CHLORIDE,CL 104 mmol/L (98-107); CREATININE 1.19 mg/dL (0.70-1.30); GLUCOSE RANDOM 111 mg/dL (70-99); LIPASE 29 U/L (16-77); PROTEIN TOTAL,TP 7.4 g/dL (6.4-8.2); SODIUM,NA 140 mmol/L (136-145)
[2024-11-28 07:55] LABS: ESTIMATED GFR 79 mL/min (>=60)
== END 2024-11-28 07:40 | disposition left against medical advice (07) ==
LOC: DL.ED 07:05
DX: R10.30 Lower abdominal pain, unspecified (principal); R10.13 Epigastric pain; F17.210 Nicotine dependence, cigarettes, uncomplicated; Z88.8 Allergy status to other drugs, medicaments and biological substances
CPT/HCPCS: 36415; 80048; 80076; 82150; 83690; 85025; 96374; 99282; 99284; A9270; J1885

== ENCOUNTER 2024-11-30 21:04 | Emergency (ER) | payer MEDICAID, OTHER ==
[2024-11-30] MEDS: Dexamethasone 4 MG/ML SDV IM ONE (22:15)
[2024-11-30] MEDS: diphenhydrAMINE 50 MG/ML SDV IM ONE (22:15)
[2024-11-30 23:50] VITALS: BP 124/78; PULSE 78
== END 2024-11-30 22:45 | disposition home or self-care (01) ==
LOC: DL.ED 21:04
DX: J30.2 Other seasonal allergic rhinitis (principal)
CPT/HCPCS: 96372; 99282; 99283; J1100; J1200

== ENCOUNTER 2025-04-09 12:38 | Emergency (ER) | payer MEDICAID ==
[2025-04-09 13:04] VITALS: BP 128/97; PULSE 95
== END 2025-04-09 13:12 | disposition home or self-care (01) ==
LOC: DL.ED 12:38
DX: B34.9 Viral infection, unspecified (principal); Z79.899 Other long term (current) drug therapy
CPT/HCPCS: 99283; A9270

== ENCOUNTER 2025-04-14 18:16 | Emergency (ER) | payer MEDICAID ==
[2025-04-14] MEDS ORDERED: Bacitracin Oint 1 GM U/D Packet TOP ONE (18:48)
[2025-04-14 19:07] VITALS: PULSE 84
[2025-04-14] MEDS: Diphtheria,Pertussis(Acell),Tetanus Vaccine 0.5 ML Syringe IM ONE (19:07)
== END 2025-04-14 19:11 | disposition home or self-care (01) ==
LOC: DL.ED 18:16
DX: S61.012A Laceration without foreign body of left thumb without damage to nail, initial encounter (principal); S61.211A Laceration without foreign body of left index finger without damage to nail, initial encounter; Z23 Encounter for immunization; W31.2XXA Contact with powered woodworking and forming machines, initial encounter
CPT/HCPCS: 90471; 90715; 99282; 99283-25

== ENCOUNTER 2025-04-21 14:34 | Emergency (ER) | payer MEDICAID ==
[2025-04-21] MEDS ORDERED: Sodium Chloride 0.9% 10 ML Syringe FLUSH PRN ×2 (14:48)
[2025-04-21] MEDS: Ketorolac 30 MG/ML SDV IVPUSH ONE (15:13)
[2025-04-21 15:15] LABS: BASOPHILS PERCENT AUTO 0.6 % (0.0-1.0); EOSINOPHILS PERCENT AUTO 3.4 % (1.0-3.0); LYMPHOCYTES PERCENT AUTO 22.1 % (20.5-50.1); MONOCYTES PERCENT AUTO 8.0 % (2-8); NEUTROPHILS PERCENT AUTO 65.9 % (42.2-75.2); PLATELET COUNT,PLT 267 10^3/uL (150-450); RED BLOOD CELL COUNT 4.25 10^6/uL (4.6-6.2); WHITE BLOOD CELL COUNT,WBC 7.9 10^3/uL (5.0-10.0)
[2025-04-21 15:33] LABS: INR 0.9 (0.9-1.2)
[2025-04-21 15:42] LABS: A/G RATIO 1.3; ALANINE AMINOTRANSFERASE,ALT 15.0 U/L (16-63); ASPARTATE AMNIOTRANSFERASE,AST 15.0 U/L (15-37); BILIRUBIN TOTAL 0.4 mg/dL (0.2-1.0); BLOOD UREA NITROGEN,BUN 13.0 mg/dL (7-18); CARBON DIOXIDE,CO2 27.0 mmol/L (21-32); CHLORIDE,CL 103.0 mmol/L (98-107); CREATININE 0.95 mg/dL (0.70-1.30); EST CRCL DRUG DOSING (CG) 101.3 mL/min; ESTIMATED GFR 102.0 mL/min (>=60); GLUCOSE RANDOM 103.0 mg/dL (70-99); POTASSIUM,K 3.8 mmol/L (3.5-5.1); PROTEIN TOTAL,TP 6.4 g/dL (6.4-8.2); SODIUM,NA 140.0 mmol/L (136-145)
[2025-04-21 16:15] VITALS: BP 122/78; PULSE 64
== END 2025-04-21 16:20 | disposition home or self-care (01) ==
LOC: DL.ED 14:34
DX: R07.89 Other chest pain (principal); F17.210 Nicotine dependence, cigarettes, uncomplicated; Z79.899 Other long term (current) drug therapy
CPT/HCPCS: 36415; 71045; 80053; 84484; 85025; 85610; 93005; 93010; 96374; 99284; 99285-25; J1885

== ENCOUNTER 2025-04-26 19:07 | Emergency (ER) | payer MEDICAID ==
[2025-04-26] MEDS: Ondansetron 4 MG Tab.DIS PO ONE (19:51)
[2025-04-26 20:11] LABS: BASOPHILS PERCENT AUTO 0.4 % (0.0-1.0); EOSINOPHILS PERCENT AUTO 3.6 % (1.0-3.0); LYMPHOCYTES PERCENT AUTO 26.6 % (20.5-50.1); MONOCYTES PERCENT AUTO 9.2 % (2-8); NEUTROPHILS PERCENT AUTO 60.2 % (42.2-75.2); PLATELET COUNT,PLT 279 10^3/uL (150-450); RED BLOOD CELL COUNT 4.53 10^6/uL (4.6-6.2); WHITE BLOOD CELL COUNT,WBC 7.3 10^3/uL (5.0-10.0)
[2025-04-26 20:28] LABS: METHAMPHETAMINES,URINE NEGATIVE (NEGATIVE)
[2025-04-26 20:29] LABS: INR 1.0 (0.9-1.2); PTT,PARTIAL THROMBOPLSTIN TIME 23.9 SEC (22.0-34.0)
[2025-04-26 20:29] LABS: AMPHETAMINES,URINE NEGATIVE (NEGATIVE); BARBITURATES,URINE NEGATIVE (NEGATIVE); MDMA (ECSTASY), URINE NEGATIVE (NEGATIVE); OPIATES,URINE NEGATIVE (NEGATIVE); OXYCODONE,URINE NEGATIVE (NEGATIVE); PHENCYCLIDINE,URINE NEGATIVE (NEGATIVE); TCA,URINE NEGATIVE (NEGATIVE)
[2025-04-26 20:41] LABS: A/G RATIO 1.1; ALANINE AMINOTRANSFERASE,ALT 20 U/L (16-63); ASPARTATE AMNIOTRANSFERASE,AST 20 U/L (15-37); BILIRUBIN TOTAL 0.3 mg/dL (0.2-1.0); BLOOD UREA NITROGEN,BUN 12 mg/dL (7-18); CARBON DIOXIDE,CO2 28 mmol/L (21-32); CHLORIDE,CL 103 mmol/L (98-107); CREATININE 0.98 mg/dL (0.70-1.30); EST CRCL DRUG DOSING (CG) 98.19 mL/min; ESTIMATED GFR 99 mL/min (>=60); ETHANOL BLOOD MEDICAL < 3 mg/dL (0); GLUCOSE RANDOM 129 mg/dL (70-99); POTASSIUM,K 3.8 mmol/L (3.5-5.1); PROTEIN TOTAL,TP 7.5 g/dL (6.4-8.2); SODIUM,NA 140 mmol/L (136-145)
[2025-04-26 20:56] VITALS: BP 152/97; PULSE 58
[2025-04-26] MEDS: Take Home: Ondansetron 4 MG Tab.DIS, 5 Tab Pack PO ONE (21:04)
== END 2025-04-26 21:06 | disposition home or self-care (01) ==
LOC: DL.ED 19:07
DX: R11.2 Nausea with vomiting, unspecified (principal); F17.200 Nicotine dependence, unspecified, uncomplicated; Z79.899 Other long term (current) drug therapy; Z86.16 Personal history of COVID-19
CPT/HCPCS: 36415; 80053; 80305; 80307; 83690; 85025; 85610; 85730; 99284; A9270; Q0162; 99283